=== PATIENT | male | born 1990 | race Caucasian/White ===

== ENCOUNTER 2017-08-29 23:24 | Emergency (ER) | payer OTHER ==
[2017-08-29 23:49] VITALS: RESP 20
--- NOTE | 2017-08-30 00:09 | C.PDOC ---
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 Patient states he went out with his friends and ate some calamari and lobster after which he developed a diffuse urticarial rash. Patient is speaking in complete sentences, denies any nausea, vomit, diarrhea, dizziness. Time Seen by Provider: 08/30/17 00:09 Chief Complaint (Nursing): Allergic Reaction History Per: Patient History/Exam Limitations: no limitations Onset/Duration Of Symptoms: Hrs Current Symptoms Are (Timing): Still Present Context: Food Possible Cause: Food Associated Symptoms: Skin Rash Home/EMS Treatment: None Severity: None Recent travel outside of the [place]: No Additional History Per: Patient Past Medical History Reviewed: Historical Data, Nursing Documentation, Vital Signs Vital Signs: Last Vital Signs Temp 97.9 F 08/29/17 23:45 Pulse 98 H 08/29/17 23:45 Resp 20 08/29/17 23:45 BP 145/90 08/29/17 23:45 Pulse Ox 100 08/30/17 00:27 - Medical History PMH: No Chronic Diseases Surgical History: No Surg Hx Family History: States: Unknown Family Hx - Social History Hx Alcohol Use: Yes Hx Substance Use: No Review Of Systems Constitutional: Negative for: Fever, Chills Cardiovascular: Negative for: Chest Pain, Palpitations Respiratory: Negative for: Cough, Shortness of Breath Gastrointestinal: Negative for: Nausea, Vomiting, Abdominal Pain Skin: Positive for: Rash Neurological: Negative for: Weakness, Numbness Physical Exam - Physical Exam Appears: Non-toxic, No Acute Distress Skin: Warm, Dry, Rash (urticarial ) Head: Normacephalic Nose: No Discharge, No Deformity Oral Mucosa: Moist Tongue: No Swelling Lips: No Swelling Throat: No Erythema, No Exudate Neck: Normal ROM, Supple Chest: Symmetrical Cardiovascular: Rhythm Regular, No Murmur Respiratory: No Decreased Breath Sounds, No Rales, No Rhonchi, No Wheezing Gastrointestinal/Abdominal: Soft, No Tenderness, No Guarding, No Rebound Extremity: No Tenderness, No Calf Tenderness, No Swelling Neurological/Psych: Oriented x3 Gait: Steady ED Course And Treatment O2 Sat by Pulse Oximetry: 100 (On RA) Pulse Ox Interpretation: Normal Progress Note: Plan: -Benadryl 25 mg IVP. -Pepcid 20 mg IVP. -Solumedrol 125 mg IVP. -IV fluids Reevaluation Time: 01:32 Reassessment Condition: Improved Critical Care Time - Critical Care Note Total Time (in mins): 30 Documented critical care: time excludes all time spent performing seperately billable procedures. Medical Decision Making Medical Decision Making: Upon provider reevaluation patient is feeling better, is medically stable, and requires no further treatment in the ED at this time. Patient will be discharged home with Rx for prednisone and epipen . Counseling was provided and all questions were answered regarding diagnosis and need for follow up with the referred clinic. There is agreement to discharge plan. Return if symptoms persist or worsen. Disposition Counseled Patient/Family Regarding: Studies Performed, Diagnosis, Need For Followup, Rx Given - Disposition Referrals: [facility] [Outside] [facility] [Outside] Disposition: HOME/ ROUTINE Disposition Time: 00:09 Condition: FAIR Additional Instructions: Please return if symptoms recur. Also use benadryl, pepcid and claritin Prescriptions: Epinephrine [Epipen] 0.3 mg IJ ONCE PRN #2 auto.injct PRN Reason: Anaphylaxis predniSONE [predniSONE Tab] 20 mg PO DAILY #5 tab Instructions: General Allergic Reaction (ED) Forms: [facility] (Lithuanian) - Clinical Impression Clinical Impression: Acute allergic reaction - Scribe Statement The provider has reviewed the documentation as recorded by the Scribe Donald Sol All medical record entries made by the Scribe were at my direction and personally dictated by me. I have reviewed the chart and agree that the record accurately reflects my personal performance of the history, physical exam, medical decision making, and the department course for this patient. I have also personally directed, reviewed, and agree with the discharge instructions and disposition.
[2017-08-30] MEDS ORDERED: DiphenhydrAMINE 50 mg/ml Inj IVP STA (00:10)
[2017-08-30] MEDS ORDERED: Sodium Chloride 0.9% 1,000 ML IV ONE (00:10)
[2017-08-30] MEDS ORDERED: DiphenhydrAMINE 50 mg/ml Inj ONE (00:23)
[2017-08-30] MEDS ORDERED: Sodium Chloride 0.9% 1,000 ML ONE (00:23)
[2017-08-30 02:20] VITALS: BP 123/83; PULSE 76; TEMP 98.9; O2SAT 99
== END 2017-08-30 02:05 | disposition home or self-care (01) ==
LOC: C.ER 23:24
DX: L50.0 Allergic urticaria (principal)
CPT/HCPCS: 96361; 96374; 96375; 99284; J1200; J2930; J7040